=== PATIENT | male | born 1945 | race Caucasian/White ===

== ENCOUNTER 2017-09-30 20:35 | Inpatient (IN) | payer MEDICARE ==
[~2017-09-30] VITALS: Ht 182.9 cm; Wt 82.6 kg
[2017-09-30 22:11] LABS: BASOPHILS % (AUTO) 0.5 % (0.0-2.0); EOSINOPHILS % (AUTO) 0.6 % (0.0-7.0); HEMATOCRIT 40.1 % (36.7-47.1); HEMOGLOBIN 13.7 g/dL (12.5-16.3); LYMPHOCYTES # (AUTO) 1.2 K/uL (20.0-40.0); LYMPHOCYTES % (AUTO) 14.8 % (20.5-51.5); MEAN CORPUSCULAR HEMOGLOBIN 30.9 uug (23.8-33.4); MEAN CORPUSCULAR HGB CONC 34 g/dL (32.5-36.3); MEAN CORPUSCULAR VOLUME 90.2 fL (73.0-96.2); MONOCYTES # (AUTO) 0.8 K/uL (2.0-10.0); MONOCYTES % (AUTO) 10.3 % (0.0-11.0); NEUTROPHILS % (AUTO) 73.8 % (38.5-71.5); PLATELET COUNT (AUTO) 282 K/uL (152-348); RED BLOOD CELL COUNT(AUTO) 4.44 MIL/uL (4.06-5.63); WHITE BLOOD COUNT (AUTO) 8.1 K/uL (3.6-10.2)
[2017-09-30 22:19] LABS: CARBON DIOXIDE 23 mmol/L (21-32); CHLORIDE 105 mmol/L (98-107); CREATININE 0.9 mg/dL (0.6-1.3); GLUCOSE 170 mg/dL (74-106); POTASSIUM 3.6 mmol/L (3.5-5.1); UREA NITROGEN, BLOOD 14 mg/dL (7-18)
[2017-09-30 22:25] LABS: ALANINE AMINOTRANSFERASE 16 U/L (16-63); ALKALINE PHOSPHATASE 89 U/L (50-136); ASPARTATE AMINOTRANSFERASE 14 U/L (15-37); BILIRUBIN,DIRECT 0.1 mg/dL (0.0-0.2); BILIRUBIN,TOTAL 0.3 mg/dL (0.2-1.0); TOTAL PROTEIN, SERUM 7.7 g/dL (6.4-8.2)
[2017-09-30 22:27] LABS: ACETAMINOPHEN < 2.0 ug/mL (10-30)
[2017-09-30 22:37] LABS: ETHANOL < 3 MG/DL (0-0)
[2017-10-01] MEDS ORDERED: LEVOFLOXACIN 750 MG TABLET PO ONE (00:15)
[2017-10-01] MEDS ORDERED: LEVOFLOXACIN 750 MG TABLET ONE (00:27)
[2017-10-01 03:20] VITALS: BP 145/79
[2017-10-01] MEDS ORDERED: MAG HYDROX/AL HYDROX/SIMETH 30 ML LIQUID UDC PO PRN (03:45)
[2017-10-01] MEDS ORDERED: MAGNESIUM HYDROXIDE 30 ML LIQUID UDC PO PRN (03:45)
[2017-10-01] MEDS ORDERED: TEMAZEPAM 7.5 MG CAPSULE PO PRN (03:45)
[2017-10-01] MEDS ORDERED: LORAZEPAM 1 MG TABLET PO PRN (03:45)
[2017-10-01] MEDS ORDERED: ACETAMINOPHEN 325 MG TABLET PO PRN (03:45)
[2017-10-01 04:51] VITALS: BP 145/79
[2017-10-01 07:16] LABS: *BILIRUBIN,URIN NEGATIVE (NEGATIVE); *BLOOD, URINE NEGATIVE (NEGATIVE); *CLARITY,URINE CLEAR (CLEAR); *COLOR,URINE YELLOW (YELLOW); *KETONES,URINE NEGATIVE (NEGATIVE); *PROTEIN,URINE 2+ (NEGATIVE); *UROBILINOGEN,URINE 0.2 E.U./dl (NORMAL); LEUKOCYTE ESTERASE ,URINE NEGATIVE (NEGATIVE); NITRITE, URINE NEGATIVE (NEGATIVE); UGLUCOSE NEGATIVE (NEGATIVE)
[2017-10-01 07:18] LABS: BACTERIA,URINE FEW /HPF (NONE SEEN); MUCUS,URINE MODERATE /LPF (0-FEW); RBC,URINE NONE SEEN /HPF (0-3); SQUAMOUS EPITHELIAL CELL,UR FEW /HPF (NONE SEEN)
[2017-10-01 07:19] LABS: *AMPHETAMINE, URINE NEGATIVE (NEGATIVE); *BARBITURATE, URINE NEGATIVE (NEGATIVE); *CANNABINOID, URINE NEGATIVE (NEGATIVE); *COCCAINE, URINE NEGATIVE (NEGATIVE); *OPIATE, URINE POSITIVE (NEGATIVE); *PHENCYCLIDINE SCREEN,URINE NEGATIVE (NEGATIVE)
[2017-10-01 07:30] VITALS: BP 151/79
[2017-10-01] MEDS: NICOTINE 21 MG/24HR PATCH TD SCH (08:26)
[2017-10-01 20:00] VITALS: BP 111/55
[2017-10-01] MEDS: LEVOFLOXACIN 750 MG TABLET PO SCH (23:19)
[2017-10-02 08:00] VITALS: BP 117/69
[2017-10-02] MEDS: NICOTINE 21 MG/24HR PATCH TD SCH (08:25)
[2017-10-02] MEDS: HALOPERIDOL 5 MG TABLET PO SCH ×3 (10:22→16:58)
[2017-10-02] MEDS: BENZTROPINE MESYLATE 1 MG TABLET PO SCH ×3 (10:22→16:58)
[2017-10-02 16:18] VITALS: BP 123/66
[2017-10-02 20:24] VITALS: BP 114/64
[2017-10-02] MEDS: LEVOFLOXACIN 750 MG TABLET PO SCH (23:20)
[2017-10-03 07:30] VITALS: BP 100/58
[2017-10-03] MEDS: BENZTROPINE MESYLATE 1 MG TABLET PO SCH ×3 (09:34→16:34)
[2017-10-03] MEDS: NICOTINE 21 MG/24HR PATCH TD SCH (09:34)
[2017-10-03] MEDS: HALOPERIDOL 5 MG TABLET PO SCH ×3 (09:34→16:34)
[2017-10-03 15:10] VITALS: BP 98/52
[2017-10-03 20:14] VITALS: BP 123/56
[2017-10-04] MEDS: LEVOFLOXACIN 750 MG TABLET PO SCH ×2 (00:13→23:49)
[2017-10-04 07:30] VITALS: BP 128/67
[2017-10-04] MEDS: BENZTROPINE MESYLATE 1 MG TABLET PO SCH ×3 (08:38→16:23)
[2017-10-04] MEDS: HALOPERIDOL 5 MG TABLET PO SCH ×3 (08:38→16:20)
[2017-10-04] MEDS: NICOTINE 21 MG/24HR PATCH TD SCH (08:38)
[2017-10-04 15:40] VITALS: BP 119/62
[2017-10-04 21:25] VITALS: BP 121/65
[2017-10-05 07:30] VITALS: BP 109/57
[2017-10-05] MEDS: BENZTROPINE MESYLATE 1 MG TABLET PO SCH ×3 (08:23→16:17)
[2017-10-05] MEDS: HALOPERIDOL 5 MG TABLET PO SCH ×3 (08:23→16:17)
[2017-10-05] MEDS: NICOTINE 21 MG/24HR PATCH TD SCH (08:23)
[2017-10-05 20:00] VITALS: BP 116/53
[2017-10-05] MEDS: LEVOFLOXACIN 750 MG TABLET PO SCH (23:15)
[2017-10-06 07:30] VITALS: BP 115/57
[2017-10-06] MEDS: NICOTINE 21 MG/24HR PATCH TD SCH (08:17)
[2017-10-06] MEDS: BENZTROPINE MESYLATE 1 MG TABLET PO SCH ×3 (08:17→16:41)
[2017-10-06] MEDS: HALOPERIDOL 5 MG TABLET PO SCH ×3 (08:17→16:41)
[2017-10-06 15:17] VITALS: BP 112/54
[2017-10-06 19:30] VITALS: BP 110/49
[2017-10-06] MEDS: LEVOFLOXACIN 750 MG TABLET PO SCH (20:10)
[2017-10-07 07:30] VITALS: BP 127/59
[2017-10-07] MEDS: BENZTROPINE MESYLATE 1 MG TABLET PO SCH ×3 (09:29→17:04)
[2017-10-07] MEDS: HALOPERIDOL 5 MG TABLET PO SCH ×3 (09:29→17:04)
[2017-10-07] MEDS: NICOTINE 21 MG/24HR PATCH TD SCH (09:29)
[2017-10-07 15:17] LABS: BASOPHILS # (AUTO) 0.1 K/uL (0.0-8.0); BASOPHILS % (AUTO) 1.2 % (0.0-2.0); EOSINOPHILS # (AUTO) 0.5 K/uL (0.0-0.7); HEMATOCRIT 40.4 % (36.7-47.1); HEMOGLOBIN 13.6 g/dL (12.5-16.3); LYMPHOCYTES # (AUTO) 1.8 K/uL (20.0-40.0); LYMPHOCYTES % (AUTO) 24.7 % (20.5-51.5); MEAN CORPUSCULAR HEMOGLOBIN 31.1 uug (23.8-33.4); MEAN CORPUSCULAR HGB CONC 34 g/dL (32.5-36.3); MEAN CORPUSCULAR VOLUME 92.5 fL (73.0-96.2); MONOCYTES # (AUTO) 0.6 K/uL (2.0-10.0); MONOCYTES % (AUTO) 7.7 % (0.0-11.0); NEUTROPHILS # (AUTO) 4.3 K/uL (1.8-8.9); NEUTROPHILS % (AUTO) 59.4 % (38.5-71.5); PLATELET COUNT (AUTO) 221 K/uL (152-348); RED BLOOD CELL COUNT(AUTO) 4.37 MIL/uL (4.06-5.63); WHITE BLOOD COUNT (AUTO) 7.3 K/uL (3.6-10.2)
[2017-10-07 15:33] LABS: BILIRUBIN,TOTAL 0.3 mg/dL (0.2-1.0); CREATININE 0.9 mg/dL (0.6-1.3); POTASSIUM 4.3 mmol/L (3.5-5.1); TOTAL PROTEIN, SERUM 7.3 g/dL (6.4-8.2)
[2017-10-07 15:38] LABS: THYROID STIMULATING HORMONE 1.563 mIU/mL (0.358-3.740)
[2017-10-07 16:47] VITALS: BP 116/56
[2017-10-07 20:14] VITALS: BP 127/58
[2017-10-07] MEDS: LEVOFLOXACIN 750 MG TABLET PO SCH (20:20)
[2017-10-08 07:30] VITALS: BP 125/53
[2017-10-08] MEDS: HALOPERIDOL 5 MG TABLET PO SCH ×3 (08:48→17:16)
[2017-10-08] MEDS: NICOTINE 21 MG/24HR PATCH TD SCH (08:48)
[2017-10-08] MEDS: BENZTROPINE MESYLATE 1 MG TABLET PO SCH ×3 (08:48→17:17)
[2017-10-08 16:46] VITALS: BP 128/71
[2017-10-08 20:00] VITALS: BP 127/63
[2017-10-09 07:30] VITALS: BP 121/58
[2017-10-09] MEDS: BENZTROPINE MESYLATE 1 MG TABLET PO SCH (08:27)
[2017-10-09] MEDS: NICOTINE 21 MG/24HR PATCH TD SCH (08:27)
[2017-10-09] MEDS: HALOPERIDOL 5 MG TABLET PO SCH (08:27)
== END 2017-10-09 11:45 | DRG 885 ==
LOC: ER 20:40 → GPS 10-01 02:00
PROVIDERS: ADMIT Psychiatry & Neurology Psychiatry
PROC: 0HBRXZZ Excision of Toe Nail, External Approach (ICD-10-PCS; principal; 2017-10-03)
DX: F20.0 Paranoid schizophrenia (principal); J18.9 Pneumonia, unspecified organism; Z86.73 Personal history of transient ischemic attack (TIA), and cerebral infarction without residual deficits; L84 Corns and callosities; B35.3 Tinea pedis; B35.1 Tinea unguium; Q82.8 Other specified congenital malformations of skin
CPT/HCPCS: 36415; 71045; 80307; 83735; 84100; 84443; 85025; 87086; 93005; A4663; G0480; G0480-TC